=== PATIENT | male | born 1990 | race Caucasian/White ===

== ENCOUNTER 2021-02-12 16:57 | Emergency (ER) | payer SELFPAY ==
[~2021-02-12] VITALS: Ht 177.8 cm; Wt 81.6 kg
[2021-02-12] MEDS ORDERED: METOCLOPRAMIDE HCL 10 MG/2 ML VIAL ONE (17:20)
[2021-02-12] MEDS ORDERED: PANTOPRAZOLE 40 MG VIAL ONE (17:20)
[2021-02-12] MEDS ORDERED: MAG HYDROX/AL HYDROX/SIMETH 30 ML UDC ONE (17:20)
[2021-02-12] MEDS ORDERED: LIDOCAINE VISCOUS 2% UD 15 ML UDC ONE (17:20)
[2021-02-12 17:23] LABS: BASOPHILS % (AUTO) 0.3 % (0.0-2.0); EOSINOPHILS % (AUTO) 6.3 % (0.0-6.0); HEMATOCRIT 46 % (39-51); LYMPHOCYTES # (AUTO) 2.2 K/uL (0.8-4.8); MEAN CORPUSCULAR HGB CONC 33 g/dl (31.0-36.0); MEAN CORPUSCULAR VOLUME 91 fL (80-96); MONOCYTES # (AUTO) 0.5 K/uL (0.1-1.30); MONOCYTES % (AUTO) 7.9 % (2.0-12.0); NEUTROPHILS # (AUTO) 3.4 K/uL (1.8-8.9); NEUTROPHILS % (AUTO) 51.5 % (43.0-81.0); PLATELET COUNT (AUTO) 203 K/uL (150-450); RED BLOOD CELL COUNT(AUTO) 5.03 MIL/uL (4.5-6.0); WHITE BLOOD COUNT (AUTO) 6.6 K/uL (4.3-11.0)
[2021-02-12] MEDS ORDERED: MAG HYDROX/AL HYDROX/SIMETH 30 ML UDC PO ONE (17:30)
[2021-02-12] MEDS ORDERED: LIDOCAINE VISCOUS 2% UD 15 ML UDC MM ONE (17:30)
[2021-02-12] MEDS ORDERED: METOCLOPRAMIDE HCL 10 MG/2 ML VIAL IV ONE (17:30)
[2021-02-12] MEDS ORDERED: PANTOPRAZOLE 40 MG VIAL IV ONE (17:30)
[2021-02-12] MEDS ORDERED: IV NS 0.9% 1,000 ML BAG IV ONE (17:30)
[2021-02-12 17:32] LABS: CREATININE 0.7 mg/dL (0.6-1.3); POTASSIUM 3.8 mmol/L (3.5-5.1)
[2021-02-12 17:38] LABS: ALBUMIN 3.5 g/dL (3.4-5.0); BILIRUBIN,DIRECT 0.1 mg/dL (0.0-0.2); BILIRUBIN,TOTAL 0.4 mg/dL (0.2-1.0); TOTAL PROTEIN, SERUM 6.7 g/dL (6.4-8.2)
--- NOTE | 2021-02-12 17:41 | NUR ---
BIB [facility] 41 FROM HOME,ON & OFF EPIGASTRIC PAIN X 7 MONTHS,WORSE SINCE THIS AM. ON ROOM AIR, BREATHING EVENLY AND UNLABORED. CONNECTED TO THE MONITOR AND PULSE OX. KEPT COMFORTABLE, WILL CONTINUE TO MONITOR ACCORDINGLY.
[2021-02-12 17:43] LABS: CALCIUM, SERUM 8.1 mg/dL (8.5-10.1)
[2021-02-12] MEDS ORDERED: PANT40TA2 PO (17:52)
[2021-02-12 18:06] VITALS: BP 128/71
--- NOTE | 2021-02-12 18:06 | NUR ---
Patient discharged to home in stable condition. Written and verbal after care instructions given. Patient verbalizes understanding of instruction.IV removed. Catheter intact and site benign. Pressure and 4x4 applied to site. No bleeding noted.
== END 2021-02-12 18:06 | disposition home or self-care (01) ==
LOC: ER 17:18
DX: R10.13 Epigastric pain (principal)
CPT/HCPCS: 36415; 71045; 76700; 80048; 80076; 85025; 96361; 96374; 96375; 99285; C9113; J2765; J7030

== ENCOUNTER 2021-05-19 00:21 | Emergency (ER) | payer SELFPAY ==
[~2021-05-19] VITALS: Ht 177.8 cm; Wt 74.4 kg
[~2021-05-19 00:21] MED LIST: PANT40TA2 PO
--- NOTE | 2021-05-19 01:45 | NUR ---
PT BIBSELF C/O EPIGASTRIC PAIN X1 DAY. PT ALERT AND ORIENTED X3. AMBUYLATORY WITH NON LABORED BREATHING.
[2021-05-19] MEDS ORDERED: PANTOPRAZOLE 40 MG VIAL ONE (01:54)
[2021-05-19] MEDS ORDERED: ONDANSETRON HCL/PF 4 MG/2 ML VIAL ONE (01:55)
[2021-05-19] MEDS ORDERED: HYDROMORPHONE 1 MG/1 ML DISP.SYRIN ONE (01:55)
[2021-05-19] MEDS ORDERED: HYDROMORPHONE INJ 2 MG/ML DISP.SYRIN IV ONE (02:00)
[2021-05-19] MEDS ORDERED: PANTOPRAZOLE 40 MG VIAL IV ONE (02:00)
[2021-05-19] MEDS ORDERED: IV NS 0.9% 1,000 ML BAG IV ONE (02:00)
[2021-05-19] MEDS ORDERED: ONDANSETRON HCL/PF 4 MG/2 ML VIAL IVP ONE (02:00)
[2021-05-19 02:17] LABS: BASOPHILS % (AUTO) 0.5 % (0.0-2.0); EOSINOPHILS % (AUTO) 6.7 % (0.0-6.0); HEMATOCRIT 42 % (39-51); HEMOGLOBIN 14.1 g/dL (13.5-17.5); LYMPHOCYTES # (AUTO) 2.9 K/uL (0.8-4.8); LYMPHOCYTES % (AUTO) 42.4 % (20.0-44.0); MEAN CORPUSCULAR HGB CONC 33 g/dl (31.0-36.0); MEAN CORPUSCULAR VOLUME 91 fL (80-96); MONOCYTES # (AUTO) 0.6 K/uL (0.1-1.30); MONOCYTES % (AUTO) 8.5 % (2.0-12.0); NEUTROPHILS # (AUTO) 2.9 K/uL (1.8-8.9); NEUTROPHILS % (AUTO) 41.9 % (43.0-81.0); PLATELET COUNT (AUTO) 192 K/uL (150-450); RED BLOOD CELL COUNT(AUTO) 4.63 MIL/uL (4.5-6.0); WHITE BLOOD COUNT (AUTO) 6.9 K/uL (4.3-11.0)
[2021-05-19 02:37] LABS: CALCIUM, SERUM 7.7 mg/dL (8.5-10.1); CARBON DIOXIDE 29 mmol/L (21-32); CHLORIDE 106 mmol/L (98-107); GLUCOSE 85 mg/dL (74-106); POTASSIUM 3.8 mmol/L (3.5-5.1); SODIUM SERUM 139 mmol/L (136-145); UREA NITROGEN, BLOOD 17 mg/dL (7-18)
[2021-05-19 02:40] LABS: BILIRUBIN,URINE NEGATIVE (NEGATIVE); COLOR,URINE YELLOW (YELLOW); LEUKOCYTE ESTERASE ,URINE NEGATIVE (NEGATIVE); NITRITE, URINE NEGATIVE (NEGATIVE); PROTEIN,URINE NEGATIVE (NEGATIVE); UGLUCOSE NEGATIVE (NEGATIVE)
[2021-05-19 02:40] LABS: OCCULT BLOOD STOOL NEGATIVE (NEGATIVE)
[2021-05-19 02:45] LABS: BACTERIA,URINE None seen /HPF (None Seen); RBC,URINE 0-2 /HPF (0-2); SQUAMOUS EPITHELIAL CELL,UR Few /HPF (None Seen); WBC,URINE 0-2 /HPF (0-3)
[2021-05-19 02:58] LABS: ALANINE AMINOTRANSFERASE 24 U/L (12-78); ALBUMIN 3.5 g/dL (3.4-5.0); ALKALINE PHOSPHATASE 69 U/L (46-116); ASPARTATE AMINOTRANSFERASE 16 U/L (15-37); BILIRUBIN,DIRECT 0.2 mg/dL (0.0-0.2); BILIRUBIN,TOTAL 0.4 mg/dL (0.2-1.0); LIPASE 171 U/L (73-393); TOTAL PROTEIN, SERUM 6.7 g/dL (6.4-8.2)
[2021-05-19] MEDS ORDERED: LIDOCAINE VISCOUS 2% UD 15 ML UDC MM ONE (03:00)
[2021-05-19] MEDS ORDERED: MAG HYDROX/AL HYDROX/SIMETH 30 ML UDC PO ONE (03:00)
[2021-05-19] MEDS ORDERED: DICYCLOMINE HCL 10 MG/5 ML UDC PO ONE (03:00)
[2021-05-19] MEDS ORDERED: MAG HYDROX/AL HYDROX/SIMETH 30 ML UDC ONE (03:34)
[2021-05-19] MEDS ORDERED: DICYCLOMINE HCL 10 MG/5 ML UDC ONE (03:34)
[2021-05-19] MEDS ORDERED: LIDOCAINE VISCOUS 2% UD 15 ML UDC ONE (03:34)
--- NOTE | 2021-05-19 03:39 | NUR ---
RESTING COMFORTABLY.VSS.
[2021-05-19] MEDS ORDERED: DICY20TA11 PO (05:03)
[2021-05-19] MEDS ORDERED: LANS30CA54 PO (05:03)
[2021-05-19] MEDS ORDERED: ONDA4TAB5 PO (05:03)
--- NOTE | 2021-05-19 05:33 | NUR ---
Patient discharged to home in stable condition. Written and verbal after care instructions given. Patient verbalizes understanding of instruction.
[2021-05-19 05:34] VITALS: BP 111/68
== END 2021-05-19 05:34 | disposition home or self-care (01) ==
LOC: ER 00:21
DX: R10.13 Epigastric pain (principal); R11.2 Nausea with vomiting, unspecified; Z79.899 Other long term (current) drug therapy
CPT/HCPCS: 36415; 71045; 80048; 80076; 81001; 82272; 83690; 84484; 85025; 85730; 93005; 96361; 96374; 96375; 99285; C9113; J1170; J2405

== ENCOUNTER 2023-05-12 17:01 | Emergency (ER) | payer BC ==
[~2023-05-12] VITALS: Ht 177.8 cm; Wt 72.6 kg
[~2023-05-12 17:01] MED LIST changes: +DICY20TA11 PO; +LANS30CA54 PO; +ONDA4TAB5 PO
[2023-05-12 17:08] VITALS: BP 101/77; TEMP 98.2
[2023-05-12] MEDS ORDERED: CEPH500T PO (17:33)
[2023-05-12] MEDS ORDERED: PERM60CR6 TP (17:33)
[2023-05-12 17:37] VITALS: O2SAT 99
== END 2023-05-12 17:38 | disposition home or self-care (01) ==
LOC: ER 17:02
DX: B86 Scabies (principal); L03.115 Cellulitis of right lower limb